=== PATIENT | male | born 1955 | race Two or more races ===

== ENCOUNTER 2020-03-18 15:10 | Inpatient (IN) | payer MEDICAID ==
[~2020-03-18] VITALS: Ht 172.7 cm; Wt 95.2 kg
[2020-03-18] MEDS ORDERED: iohexol 350MG/ML 100ml bottle IV ONE (16:33)
[2020-03-18] MEDS ORDERED: TRAZ-251 PO (17:50)
[2020-03-18] MEDS ORDERED: GABA300C PO (17:50)
[2020-03-18] MEDS ORDERED: NORT50CA PO (17:50)
[2020-03-18] MEDS ORDERED: BACL10TA2 PO (17:50)
[2020-03-18] MEDS ORDERED: DOCU-22 PO (17:50)
[2020-03-18] MEDS ORDERED: BETH25TA43 PO (17:50)
[2020-03-18] MEDS ORDERED: ATOR10TA70 PO (17:50)
[2020-03-18] MEDS ORDERED: FLO0.4C PO (17:50)
[2020-03-18] MEDS ORDERED: morphine 2 MG/ML inj. syringe IV PRN ×2 (17:55)
[2020-03-18] MEDS ORDERED: HYDROcodone/acetaminophen 5mg/325mg tablet PO PRN (17:55)
[2020-03-18] MEDS ORDERED: ondansetron/PF 4mg/2ml inj IV PRN (17:55)
[2020-03-18] MEDS ORDERED: acetaminophen 325mg tablet PO PRN ×2 (17:55)
[2020-03-18] MEDS ORDERED: mag hydrox/Alum hydrox/simeth 30ml oral suspension PO PRN (17:55)
[2020-03-18] MEDS: dextrose 5%-1/2 normal saline 1,000 ML IV SCH (18:10)
[2020-03-18 19:55] LABS: D-DIMER 0.65 MG/L FEU (0-0.50)
[2020-03-18 19:57] LABS: C-REACTIVE PROTEIN 23.4 MG/DL (0.0-0.5)
--- NOTE | 2020-03-18 20:14 | NUR ---
Patient in room ED 16. I have received report from Ara EL and had the opportunity to ask questions.
[2020-03-18 20:25] VITALS: BP 146/83
--- NOTE | 2020-03-18 20:25 | NUR ---
Patient arrived to unit from ED at 2024 via gurney and walked self to bed. Patient oriented to room, call light in reach, A&Ox4, hooked up to telemetry monitoring, and MRSA swab obtained. Patient vitals: BP: 146/83, HR: 77, SpO@: 94% on 6L nasal cannula, RR: 26, T: 98.2, and pain 0. Will continue to monitor.
[2020-03-18] MEDS ORDERED: REMDESIVIR 100MG inj. 200 MG in normal saline 100ml IV soln 100 ML IV ONE (21:40)
[2020-03-18 22:00] VITALS: BP 140/80
[2020-03-18 23:16] LABS: ABG HCO3 23.3 mmol/L (22.0-26.0); ABG OXYGEN SATURATION 82.4 % (94-97); ABG PO2 (T) 42.1 mmHg (75.0-100.0); ALLEN'S TEST POSITIVE; FCOHb 0.4 % (0.0-3.9); FLOW 6 L/min; FMetHb 0.1 % (0.0-1.5); PATIENT TEMPERATURE 36.8; TOTAL HEMOGLOBIN 14.7 G/dl (14.0-18.0)
[2020-03-18] MEDS ORDERED: LIDOcaine 2% 10ml TOPICAL JELLY (Urojet) TP ONE (23:40)
[2020-03-19] VITALS (7 sets, daily range): BP systolic 129–137; BP diastolic 58–82
[2020-03-19] MEDS: dextrose 5%-1/2 normal saline 1,000 ML IV SCH ×2 (05:57→20:54)
[2020-03-19 05:59] LABS: BASOPHILS % (AUTO) 0.2 % (0-1); EOSINOPHILS % (AUTO) 0 % (0-6); HEMATOCRIT 42.9 % (42.0-52.0); HEMOGLOBIN 14.1 g/dl (14.0-17.9); LYMPHOCYTES # (AUTO) 0.6 X10'3 (1.1-4.8); LYMPHOCYTES % (AUTO) 23.2 % (21-51); MEAN CORPUSCULAR HEMOGLOBIN 29.5 PG (27.0-31.0); MEAN CORPUSCULAR HGB CONC 32.9 g/dL (33.0-36.5); MEAN CORPUSCULAR VOLUME 89.7 FL (78-98); MEAN PLATELET VOLUME 9.2 FL (7.4-10.4); MONOCYTES # (AUTO) 0.2 X10'3 (0-0.9); NEUTROPHILS % (AUTO) 69.6 % (42-75); PLATELET COUNT 167 X10'3 (140-440); RED BLOOD COUNT 4.79 X10'6 (4.70-6.10); RED CELL DISTRIBUTION WIDTH 14.3 % (11.5-14.5); WHITE BLOOD COUNT 2.8 X10'3 (4.5-11.0)
[2020-03-19 06:07] LABS: ALBUMIN 2.5 G/DL (3.4-5.0); ANION GAP 10 (8-16); BLOOD UREA NITROGEN 22 MG/DL (7-18); BUN/CREATININE RATIO 21.4 (5.4-32.0); CALCIUM 8.4 MG/DL (8.5-10.1); CHLORIDE 104 MMOL/L (99-107); CREATININE 1.03 MG/DL (0.60-1.10); GLUCOSE 174 MG/DL (70-104); POTASSIUM 3.9 MMOL/L (3.5-5.1); SODIUM 138 MMOL/L (135-145); TOTAL CARBON DIOXIDE 24.5 MMOL/L (24-32); eGFR 73 ML/MIN
--- NOTE | 2020-03-19 06:38 | NUR ---
Problems reprioritized. Patient report given, questions answered & plan of care reviewed with Cassidy EL.
[2020-03-19 07:00] LABS: PLATELET ESTIMATE NORMAL; TOTAL CELLS COUNTED 100
[2020-03-19] MEDS: enoxaparin 40mg/0.4ml syringe SUBCUT SCH (08:00)
[2020-03-19] MEDS: REMDESIVIR 100MG inj. 100 MG in normal saline 100ml IV soln 100 ML IV SCH (08:00)
[2020-03-19] MEDS ORDERED: dexamethasone 4mg tablet PO SCH (08:00)
[2020-03-19] MEDS ORDERED: DEXAMETHASONE 6 MG TABLET PO SCH (08:00)
[2020-03-19 08:06] LABS: C-REACTIVE PROTEIN 23.73 MG/DL (0.0-0.5); LACTATE DEHYDROGENASE 484 U/L (85-227)
[2020-03-19] MEDS: atorvastatin 10mg tablet PO SCH (08:17)
[2020-03-19] MEDS: CefTRIAXone 2gm/D5W 50ml BAG 50 ML IV SCH (10:20)
[2020-03-19] MEDS: gabapentin 300mg capsule PO SCH ×2 (13:00→20:54)
[2020-03-19] MEDS: baclofen 10mg tablet PO SCH ×2 (13:00→20:53)
--- NOTE | 2020-03-19 17:04 | NUR ---
Patient AOx4 but reports still feeling confused, and is able to follow commands. No open wounds. Addendum: 03/19/20 at 1707 by Cassidy Alonzo RN Wrong patient
--- NOTE | 2020-03-19 18:00 | NUR ---
Patient in room PCU 3009. I have received report from Cassidy EL and had the opportunity to ask questions and assume patient care.
--- NOTE | 2020-03-19 18:15 | NUR ---
Problems reprioritized. Patient report given, questions answered & plan of care reviewed with Tricia EL.
[2020-03-19] MEDS: tamsulosin 0.4mg capsule PO SCH (20:53)
[2020-03-19] MEDS: nortriptyline 25mg capsule PO SCH (20:53)
[2020-03-19] MEDS: DEXAMETHASONE 6 MG TABLET PO SCH (20:54)
[2020-03-19] MEDS ORDERED: traZODone 50mg tablet PO SCH (21:00)
--- NOTE | 2020-03-19 22:42 | NUR ---
Attempted to dart patient, very poor historian.
[2020-03-20 02:00] VITALS: BP 121/69
--- NOTE | 2020-03-20 06:00 | NUR ---
Patient in room PCU 3009. I have received report from Leilani EL and had the opportunity to ask questions and assume patient care.
--- NOTE | 2020-03-20 06:24 | NUR ---
Problems reprioritized. Patient report given, questions answered & plan of care reviewed with Georgette EL.
[2020-03-20 06:43] LABS: BASOPHILS % (AUTO) 0.3 % (0-1); EOSINOPHILS % (AUTO) 0 % (0-6); HEMATOCRIT 40.9 % (42.0-52.0); HEMOGLOBIN 13.7 g/dl (14.0-17.9); LYMPHOCYTES # (AUTO) 0.7 X10'3 (1.1-4.8); LYMPHOCYTES % (AUTO) 11.1 % (21-51); MEAN CORPUSCULAR HEMOGLOBIN 29.3 PG (27.0-31.0); MEAN CORPUSCULAR HGB CONC 33.4 g/dL (33.0-36.5); MEAN CORPUSCULAR VOLUME 87.7 FL (78-98); MEAN PLATELET VOLUME 9.3 FL (7.4-10.4); MONOCYTES # (AUTO) 0.2 X10'3 (0-0.9); NEUTROPHILS # (AUTO) 5.1 X10'3 (1.8-7.7); NEUTROPHILS % (AUTO) 84.6 % (42-75); PLATELET COUNT 214 X10'3 (140-440); RED BLOOD COUNT 4.66 X10'6 (4.70-6.10); RED CELL DISTRIBUTION WIDTH 14.2 % (11.5-14.5); WHITE BLOOD COUNT 6.1 X10'3 (4.5-11.0)
[2020-03-20 06:53] LABS: D-DIMER 0.95 MG/L FEU (0-0.50)
[2020-03-20 07:17] LABS: ALBUMIN 2.5 G/DL (3.4-5.0); ANION GAP 12 (8-16); BLOOD UREA NITROGEN 29 MG/DL (7-18); BUN/CREATININE RATIO 24.6 (5.4-32.0); C-REACTIVE PROTEIN 10.13 MG/DL (0.0-0.5); CALCIUM 8.6 MG/DL (8.5-10.1); CHLORIDE 109 MMOL/L (99-107); CREATININE 1.18 MG/DL (0.60-1.10); GLUCOSE 180 MG/DL (70-104); SODIUM 145 MMOL/L (135-145); TOTAL CARBON DIOXIDE 23.6 MMOL/L (24-32); eGFR 62 ML/MIN
[2020-03-20] MEDS: enoxaparin 40mg/0.4ml syringe SUBCUT SCH ×2 (08:54→20:12)
[2020-03-20] MEDS: DEXAMETHASONE 6 MG TABLET PO SCH ×2 (08:54→20:10)
[2020-03-20] MEDS: atorvastatin 10mg tablet PO SCH (08:54)
[2020-03-20] MEDS: baclofen 10mg tablet PO SCH ×2 (08:54→16:03)
[2020-03-20] MEDS: gabapentin 300mg capsule PO SCH ×3 (08:54→20:10)
[2020-03-20] MEDS: REMDESIVIR 100MG inj. 100 MG in normal saline 100ml IV soln 100 ML IV SCH (08:55)
[2020-03-20] MEDS: CefTRIAXone 2gm/D5W 50ml BAG 50 ML IV SCH (08:55)
[2020-03-20 10:00] VITALS: BP 131/69
[2020-03-20 13:03] VITALS: BP 123/72
[2020-03-20] MEDS: dextrose 5%-1/2 normal saline 1,000 ML IV SCH (13:45)
[2020-03-20 17:13] VITALS: BP 134/72
--- NOTE | 2020-03-20 18:20 | NUR ---
Problems reprioritized. Patient report given, questions answered & plan of care reviewed with Mirza EL.
[2020-03-20 19:00] VITALS: BP 146/75
[2020-03-20] MEDS: nortriptyline 25mg capsule PO SCH (20:10)
[2020-03-20] MEDS: tamsulosin 0.4mg capsule PO SCH (20:10)
[2020-03-20 23:00] VITALS: BP 143/84
[2020-03-21 03:00] VITALS: BP 121/78
--- NOTE | 2020-03-21 06:11 | NUR ---
Patient in room PCU 3009. I have received report from Mirza EL and had the opportunity to ask questions and assume patient care.
[2020-03-21] MEDS: dextrose 5%-1/2 normal saline 1,000 ML IV SCH (06:25)
[2020-03-21 07:00] VITALS: BP 141/72
[2020-03-21] MEDS: atorvastatin 10mg tablet PO SCH (08:07)
[2020-03-21] MEDS: gabapentin 300mg capsule PO SCH ×3 (08:07→20:55)
[2020-03-21] MEDS: REMDESIVIR 100MG inj. 100 MG in normal saline 100ml IV soln 100 ML IV SCH (08:07)
[2020-03-21] MEDS: DEXAMETHASONE 6 MG TABLET PO SCH ×2 (08:07→20:54)
[2020-03-21] MEDS: enoxaparin 40mg/0.4ml syringe SUBCUT SCH (08:08)
[2020-03-21 08:42] LABS: BASOPHILS % (AUTO) 0.2 % (0-1); EOSINOPHILS % (AUTO) 0 % (0-6); HEMATOCRIT 40.3 % (42.0-52.0); HEMOGLOBIN 13.5 g/dl (14.0-17.9); LYMPHOCYTES # (AUTO) 0.5 X10'3 (1.1-4.8); LYMPHOCYTES % (AUTO) 8.1 % (21-51); MEAN CORPUSCULAR HEMOGLOBIN 29.7 PG (27.0-31.0); MEAN CORPUSCULAR HGB CONC 33.4 g/dL (33.0-36.5); MEAN PLATELET VOLUME 9.2 FL (7.4-10.4); MONOCYTES # (AUTO) 0.2 X10'3 (0-0.9); NEUTROPHILS # (AUTO) 5.3 X10'3 (1.8-7.7); NEUTROPHILS % (AUTO) 87.7 % (42-75); PLATELET COUNT 236 X10'3 (140-440); RED BLOOD COUNT 4.53 X10'6 (4.70-6.10); RED CELL DISTRIBUTION WIDTH 14.3 % (11.5-14.5)
[2020-03-21 08:51] LABS: D-DIMER 1.13 MG/L FEU (0-0.50)
[2020-03-21] MEDS: CefTRIAXone 2gm/D5W 50ml BAG 50 ML IV SCH (09:00)
[2020-03-21 09:02] LABS: ALBUMIN 2.5 G/DL (3.4-5.0); ANION GAP 11 (8-16); BLOOD UREA NITROGEN 30 MG/DL (7-18); BUN/CREATININE RATIO 26.5 (5.4-32.0); C-REACTIVE PROTEIN 4.53 MG/DL (0.0-0.5); CALCIUM 8.2 MG/DL (8.5-10.1); CHLORIDE 107 MMOL/L (99-107); CREATININE 1.13 MG/DL (0.60-1.10); GLUCOSE 150 MG/DL (70-104); POTASSIUM 4.2 MMOL/L (3.5-5.1); SODIUM 141 MMOL/L (135-145); TOTAL CARBON DIOXIDE 23.5 MMOL/L (24-32); eGFR 65 ML/MIN
[2020-03-21 11:00] VITALS: BP 155/84
[2020-03-21 16:27] VITALS: BP 117/79
[2020-03-21 18:00] VITALS: BP 150/79
--- NOTE | 2020-03-21 18:30 | NUR ---
Patient in room PCU 3009. I have received report from Robert EL and had the opportunity to ask questions and assume patient care.
[2020-03-21] MEDS: lactobacillus rhamnosus 10,000 MMU CELLS/CAPSULE PO SCH (20:54)
[2020-03-21] MEDS: nortriptyline 25mg capsule PO SCH (20:54)
[2020-03-21] MEDS: tamsulosin 0.4mg capsule PO SCH (20:55)
[2020-03-21] MEDS: HYDROcodone/acetaminophen 10/325mg tab PO PRN (20:56)
[2020-03-21] MEDS: enoxaparin 60mg/0.6ml syringe SUBCUT SCH (20:57)
[2020-03-21 22:00] VITALS: BP 140/91
[2020-03-22 02:00] VITALS: BP 128/74
[2020-03-22] MEDS: HYDROcodone/acetaminophen 10/325mg tab PO PRN ×2 (02:42→19:45)
[2020-03-22] MEDS: dextrose 5%-1/2 normal saline 1,000 ML IV SCH ×3 (03:00→22:31)
[2020-03-22 05:43] LABS: BASOPHILS % (AUTO) 0.6 % (0-1); EOSINOPHILS % (AUTO) 0 % (0-6); HEMATOCRIT 40.1 % (42.0-52.0); HEMOGLOBIN 13.2 g/dl (14.0-17.9); LYMPHOCYTES # (AUTO) 0.4 X10'3 (1.1-4.8); LYMPHOCYTES % (AUTO) 6.3 % (21-51); MEAN CORPUSCULAR HEMOGLOBIN 29.1 PG (27.0-31.0); MEAN CORPUSCULAR HGB CONC 32.9 g/dL (33.0-36.5); MEAN CORPUSCULAR VOLUME 88.3 FL (78-98); MEAN PLATELET VOLUME 9.4 FL (7.4-10.4); MONOCYTES # (AUTO) 0.2 X10'3 (0-0.9); MONOCYTES % (AUTO) 3.3 % (2-12); NEUTROPHILS % (AUTO) 89.8 % (42-75); PLATELET COUNT 254 X10'3 (140-440); RED BLOOD COUNT 4.54 X10'6 (4.70-6.10); RED CELL DISTRIBUTION WIDTH 14.3 % (11.5-14.5); WHITE BLOOD COUNT 6.7 X10'3 (4.5-11.0)
[2020-03-22 06:00] VITALS: BP 124/68
[2020-03-22 06:28] LABS: ALBUMIN 2.5 G/DL (3.4-5.0); ANION GAP 8 (8-16); BLOOD UREA NITROGEN 25 MG/DL (7-18); BUN/CREATININE RATIO 22.3 (5.4-32.0); C-REACTIVE PROTEIN 2.89 MG/DL (0.0-0.5); CALCIUM 8.6 MG/DL (8.5-10.1); CHLORIDE 106 MMOL/L (99-107); CREATININE 1.12 MG/DL (0.60-1.10); GLUCOSE 171 MG/DL (70-104); POTASSIUM 4.7 MMOL/L (3.5-5.1); SODIUM 139 MMOL/L (135-145); TOTAL CARBON DIOXIDE 24.6 MMOL/L (24-32); eGFR 66 ML/MIN
--- NOTE | 2020-03-22 06:56 | NUR ---
Problems reprioritized. Patient report given, questions answered & plan of care reviewed with Mariya EL.
[2020-03-22 07:22] LABS: D-DIMER 1.08 MG/L FEU (0-0.50)
[2020-03-22] MEDS: CefTRIAXone 2gm/D5W 50ml BAG 50 ML IV SCH (08:00)
[2020-03-22] MEDS: REMDESIVIR 100MG inj. 100 MG in normal saline 100ml IV soln 100 ML IV SCH (08:00)
[2020-03-22] MEDS: DEXAMETHASONE 6 MG TABLET PO SCH ×2 (09:17→19:44)
[2020-03-22] MEDS: gabapentin 300mg capsule PO SCH ×3 (09:18→22:30)
[2020-03-22] MEDS: atorvastatin 10mg tablet PO SCH (09:18)
[2020-03-22] MEDS: lactobacillus rhamnosus 10,000 MMU CELLS/CAPSULE PO SCH ×2 (09:18→19:44)
[2020-03-22] MEDS: enoxaparin 60mg/0.6ml syringe SUBCUT SCH ×2 (09:19→19:45)
[2020-03-22 11:00] VITALS: BP 131/74
[2020-03-22 15:00] VITALS: BP 128/66
[2020-03-22 18:00] VITALS: BP 128/79
--- NOTE | 2020-03-22 18:46 | NUR ---
Patient in room PCU 3009. I have received report from Mariya EL and had the opportunity to ask questions and assume patient care.
--- NOTE | 2020-03-22 18:55 | NUR ---
Problems reprioritized. Patient report given, questions answered & plan of care reviewed with Lucita EL.
[2020-03-22 22:00] VITALS: BP 130/77
[2020-03-22] MEDS: tamsulosin 0.4mg capsule PO SCH (22:30)
[2020-03-22] MEDS: nortriptyline 25mg capsule PO SCH (22:30)
[2020-03-23] MEDS: HYDROcodone/acetaminophen 10/325mg tab PO PRN (01:05)
[2020-03-23 02:00] VITALS: BP 138/76
[2020-03-23 05:52] LABS: BASOPHILS % (AUTO) 0.2 % (0-1); EOSINOPHILS % (AUTO) 0 % (0-6); HEMATOCRIT 40.2 % (42.0-52.0); HEMOGLOBIN 13.5 g/dl (14.0-17.9); LYMPHOCYTES # (AUTO) 0.5 X10'3 (1.1-4.8); MEAN CORPUSCULAR HEMOGLOBIN 29.8 PG (27.0-31.0); MEAN CORPUSCULAR HGB CONC 33.5 g/dL (33.0-36.5); MEAN CORPUSCULAR VOLUME 88.8 FL (78-98); MEAN PLATELET VOLUME 9.1 FL (7.4-10.4); MONOCYTES # (AUTO) 0.2 X10'3 (0-0.9); MONOCYTES % (AUTO) 3.2 % (2-12); NEUTROPHILS # (AUTO) 5.8 X10'3 (1.8-7.7); NEUTROPHILS % (AUTO) 88.6 % (42-75); PLATELET COUNT 257 X10'3 (140-440); RED BLOOD COUNT 4.52 X10'6 (4.70-6.10); RED CELL DISTRIBUTION WIDTH 14.4 % (11.5-14.5); WHITE BLOOD COUNT 6.5 X10'3 (4.5-11.0)
[2020-03-23 06:04] LABS: ALBUMIN 2.5 G/DL (3.4-5.0); ANION GAP 10 (8-16); BLOOD UREA NITROGEN 29 MG/DL (7-18); BUN/CREATININE RATIO 25.2 (5.4-32.0); CALCIUM 8.2 MG/DL (8.5-10.1); CHLORIDE 104 MMOL/L (99-107); CREATININE 1.15 MG/DL (0.60-1.10); GLUCOSE 183 MG/DL (70-104); POTASSIUM 4.7 MMOL/L (3.5-5.1); SODIUM 137 MMOL/L (135-145); TOTAL CARBON DIOXIDE 23.4 MMOL/L (24-32); eGFR 64 ML/MIN
[2020-03-23 06:08] LABS: D-DIMER 1.08 MG/L FEU (0-0.50)
--- NOTE | 2020-03-23 06:18 | NUR ---
Problems reprioritized. Patient report given, questions answered & plan of care reviewed with Najma EL.
--- NOTE | 2020-03-23 06:30 | NUR ---
Patient in room PCU 3009. I have received report from SIENNA Landrum and had the opportunity to ask questions and assume patient care.
[2020-03-23 08:00] VITALS: BP 132/76
[2020-03-23] MEDS: CefTRIAXone 2gm/D5W 50ml BAG 50 ML IV SCH (08:51)
[2020-03-23] MEDS: atorvastatin 10mg tablet PO SCH (08:52)
[2020-03-23] MEDS: DEXAMETHASONE 6 MG TABLET PO SCH ×2 (08:52→20:00)
[2020-03-23] MEDS: lactobacillus rhamnosus 10,000 MMU CELLS/CAPSULE PO SCH ×2 (08:52→20:00)
[2020-03-23] MEDS: enoxaparin 60mg/0.6ml syringe SUBCUT SCH ×2 (08:53→20:00)
[2020-03-23] MEDS: gabapentin 300mg capsule PO SCH ×3 (08:53→21:03)
[2020-03-23 10:37] VITALS: BP 125/76
--- NOTE | 2020-03-23 14:56 | NUR ---
Initial: Pt admit DX acute respiratory failure r/t COVID-19 per EMR. PO fluctuating 50-75% meals improving to 75-100% more recent meals meeting needs. No SOB at this time per MD note. LBM 03/21. Will continue to monitor for additional protein needs. Rec: 1. continue regular diet 2. monitor for additional protein needs 3. routine bowel care 4. wt per rx Addendum: 03/23/20 at [address] Amended: Links added.
[2020-03-23 17:00] VITALS: BP 119/65
[2020-03-23] MEDS: dextrose 5%-1/2 normal saline 1,000 ML IV SCH (17:28)
--- NOTE | 2020-03-23 18:00 | NUR ---
Patient in room PCU 3009. I have received report from Najma EL and had the opportunity to ask questions and assume patient care.
--- NOTE | 2020-03-23 18:30 | NUR ---
Problems reprioritized. Patient report given, questions answered & plan of care reviewed with Michael RN.
[2020-03-23] MEDS: tamsulosin 0.4mg capsule PO SCH (21:03)
[2020-03-23] MEDS: nortriptyline 25mg capsule PO SCH (21:03)
[2020-03-23 22:00] VITALS: BP 141/76
[2020-03-24] MEDS: dextrose 5%-1/2 normal saline 1,000 ML IV SCH ×2 (01:05→10:26)
[2020-03-24 02:00] VITALS: BP 125/86
[2020-03-24 05:32] VITALS: BP 133/75
--- NOTE | 2020-03-24 06:26 | NUR ---
Patient in room PCU 3009. I have received report from Angelina EL and had the opportunity to ask questions and assume patient care.
--- NOTE | 2020-03-24 06:30 | NUR ---
Orientee documentation: I have reviewed and agree with all interventions, assessments performed, and Medication administration documented by Anali RN.
[2020-03-24 07:00] VITALS: BP 122/74
[2020-03-24 07:02] LABS: D-DIMER 0.93 MG/L FEU (0-0.50)
[2020-03-24] MEDS: CefTRIAXone 2gm/D5W 50ml BAG 50 ML IV SCH (08:03)
[2020-03-24] MEDS: gabapentin 300mg capsule PO SCH ×3 (08:03→20:49)
[2020-03-24] MEDS: lactobacillus rhamnosus 10,000 MMU CELLS/CAPSULE PO SCH ×2 (08:03→20:50)
[2020-03-24] MEDS: DEXAMETHASONE 6 MG TABLET PO SCH ×2 (08:04→20:48)
[2020-03-24] MEDS: atorvastatin 10mg tablet PO SCH (08:04)
[2020-03-24] MEDS: enoxaparin 60mg/0.6ml syringe SUBCUT SCH ×2 (08:05→20:51)
[2020-03-24 11:00] VITALS: BP 127/63
--- NOTE | 2020-03-24 13:00 | NUR ---
Patient oxygen high flow titrated down. 35 liters @ 80%. Patient respirations 18 with no increased work of breathing. Will continue to monitor.
[2020-03-24 15:00] VITALS: BP 120/69
--- NOTE | 2020-03-24 17:56 | NUR ---
Titrated patient's high flow 30 L @ 70%. Oxygen saturation 94%. Respiration rate 18. No increased work of breathing.
--- NOTE | 2020-03-24 18:00 | NUR ---
Patient in room PCU 3009. I have received report from Nori EL and had the opportunity to ask questions and assume patient care.
--- NOTE | 2020-03-24 18:14 | NUR ---
Problems reprioritized. Patient report given, questions answered & plan of care reviewed with SIENNA Alfaro. Patient stable at transfer of care.
--- NOTE | 2020-03-24 18:20 | NUR ---
Patient in room PCU 3009. I have received report from Nori EL and had the opportunity to ask questions and assume patient care.
[2020-03-24] MEDS: nortriptyline 25mg capsule PO SCH (20:49)
[2020-03-24] MEDS: tamsulosin 0.4mg capsule PO SCH (20:50)
[2020-03-24 21:00] VITALS: BP 119/76
[2020-03-25] VITALS (7 sets, daily range): BP systolic 107–121; BP diastolic 68–82
[2020-03-25 04:54] LABS: D-DIMER 0.67 MG/L FEU (0-0.50)
--- NOTE | 2020-03-25 06:14 | NUR ---
Problems reprioritized. Patient report given, questions answered & plan of care reviewed with Nori EL.
--- NOTE | 2020-03-25 06:15 | NUR ---
Patient in room PCU 3009. I have received report from Angelina EL and had the opportunity to ask questions and assume patient care.
--- NOTE | 2020-03-25 06:34 | NUR ---
Orientee documentation: I have reviewed and agree with all interventions, assessments performed, and Medication administration documented by Polly EL.
--- NOTE | 2020-03-25 06:35 | NUR ---
Problems reprioritized. Patient report given, questions answered & plan of care reviewed with Nori EL.
[2020-03-25] MEDS: DEXAMETHASONE 6 MG TABLET PO SCH ×2 (07:52→20:51)
[2020-03-25] MEDS: lactobacillus rhamnosus 10,000 MMU CELLS/CAPSULE PO SCH ×2 (07:53→20:51)
[2020-03-25] MEDS: gabapentin 300mg capsule PO SCH ×3 (07:53→20:51)
[2020-03-25] MEDS: atorvastatin 10mg tablet PO SCH (07:53)
[2020-03-25] MEDS: CefTRIAXone 2gm/D5W 50ml BAG 50 ML IV SCH (07:53)
[2020-03-25] MEDS: enoxaparin 60mg/0.6ml syringe SUBCUT SCH ×2 (07:54→20:52)
--- NOTE | 2020-03-25 11:00 | NUR ---
Patient oxygen requirements 30L at 60% on high flow. Oxygen saturation 92%. No increased work of breathing. Will continue to monitor.
--- NOTE | 2020-03-25 18:34 | NUR ---
Patient in room PCU 3009. I have received report from Nori EL and had the opportunity to ask questions and assume patient care.
[2020-03-25] MEDS: tamsulosin 0.4mg capsule PO SCH (20:51)
[2020-03-25] MEDS: nortriptyline 25mg capsule PO SCH (20:51)
[2020-03-26 02:00] VITALS: BP 112/68
--- NOTE | 2020-03-26 06:05 | NUR ---
Problems reprioritized. Patient report given, questions answered & plan of care reviewed with Gifty.
--- NOTE | 2020-03-26 06:33 | NUR ---
Patient in room PCU 3009. I have received report from Debbie EL and had the opportunity to ask questions and assume patient care.
[2020-03-26 06:40] LABS: D-DIMER 0.78 MG/L FEU (0-0.50)
[2020-03-26 07:00] VITALS: BP 112/68
--- NOTE | 2020-03-26 07:00 | NUR ---
Orientee documentation: I have reviewed and agree with all interventions, assessments performed, and Medications administered documented by Karime EL.
--- NOTE | 2020-03-26 07:00 | NUR ---
Problems reprioritized. Patient report given, questions answered & plan of care reviewed with Sivan EL.
[2020-03-26] MEDS: DEXAMETHASONE 6 MG TABLET PO SCH ×2 (08:53→21:06)
[2020-03-26] MEDS: CefTRIAXone 2gm/D5W 50ml BAG 50 ML IV SCH (08:54)
[2020-03-26] MEDS: lactobacillus rhamnosus 10,000 MMU CELLS/CAPSULE PO SCH ×2 (08:54→21:06)
[2020-03-26] MEDS: enoxaparin 60mg/0.6ml syringe SUBCUT SCH ×2 (08:54→21:07)
[2020-03-26] MEDS: atorvastatin 10mg tablet PO SCH (08:54)
[2020-03-26] MEDS: gabapentin 300mg capsule PO SCH ×3 (08:54→21:08)
[2020-03-26 12:00] VITALS: BP 117/92
[2020-03-26 14:39] VITALS: BP 123/67
--- NOTE | 2020-03-26 15:48 | NUR ---
Reassessment: Pt PO intake average 100% on heart healthy diet, d/w dietary to send double protein TIDWM for satiety and increased protein needs. Last BM 03/21, prn bowel care available. Recommend prune juice with next meal, d/w dietary. Will continue to monitor for additional protein needs. Rec: 1. continue regular diet 2. double eggs at breakfast, double meat BIDLD 3. routine bowel care 4. wt per rx Addendum: 03/26/20 at [address] Amended: Links added. Addendum: 03/26/20 at [address] I have reviewed and agree with note by Chocolate Dipper. Kandice Carey RD
[2020-03-26 18:00] VITALS: BP 124/73
--- NOTE | 2020-03-26 18:22 | NUR ---
Problems reprioritized. Patient report given, questions answered & plan of care reviewed with Jennifer EL.
--- NOTE | 2020-03-26 18:38 | NUR ---
Patient in room PCU 3009. I have received report from Sivan EL and had the opportunity to ask questions and assume patient care.
[2020-03-26] MEDS: tamsulosin 0.4mg capsule PO SCH (21:07)
[2020-03-26] MEDS: nortriptyline 25mg capsule PO SCH (21:08)
[2020-03-26 22:00] VITALS: BP 114/76
[2020-03-27 02:00] VITALS: BP 108/71
--- NOTE | 2020-03-27 06:38 | NUR ---
Patient in room PCU 3009. I have received report from Jennifer EL and had the opportunity to ask questions and assume patient care.
--- NOTE | 2020-03-27 06:38 | NUR ---
Problems reprioritized. Patient report given, questions answered & plan of care reviewed with Josefina EL.
[2020-03-27 07:22] VITALS: BP 123/72
[2020-03-27] MEDS: lactobacillus rhamnosus 10,000 MMU CELLS/CAPSULE PO SCH ×2 (07:38→20:56)
[2020-03-27] MEDS: DEXAMETHASONE 6 MG TABLET PO SCH (07:38)
[2020-03-27] MEDS: atorvastatin 10mg tablet PO SCH (07:38)
[2020-03-27] MEDS: docusate sod 100mg capsule PO PRN (07:38)
[2020-03-27] MEDS: enoxaparin 60mg/0.6ml syringe SUBCUT SCH ×2 (07:39→20:57)
[2020-03-27] MEDS: gabapentin 300mg capsule PO SCH ×3 (07:39→20:56)
[2020-03-27] MEDS: magnesium hydroxide 30ml (MOM) UD suspension PO PRN (07:39)
[2020-03-27 07:50] LABS: D-DIMER 0.68 MG/L FEU (0-0.50)
[2020-03-27 11:39] VITALS: BP 119/71
[2020-03-27 16:24] VITALS: BP 137/75
--- NOTE | 2020-03-27 18:18 | NUR ---
Problems reprioritized. Patient report given, questions answered & plan of care reviewed with Emma EL.
[2020-03-27 19:00] VITALS: BP 140/70
[2020-03-27] MEDS: tamsulosin 0.4mg capsule PO SCH (20:56)
[2020-03-27] MEDS: dexamethasone 4mg tablet PO SCH (20:56)
[2020-03-27] MEDS: nortriptyline 25mg capsule PO SCH (20:56)
[2020-03-28 02:58] VITALS: BP 114/68
[2020-03-28 05:28] LABS: D-DIMER 0.36 MG/L FEU (0-0.50)
--- NOTE | 2020-03-28 06:13 | NUR ---
Patient in room PCU 3009. I have received report from SIENNA Carter and had the opportunity to ask questions and assume patient care.
[2020-03-28 07:37] VITALS: BP 125/75
[2020-03-28] MEDS: atorvastatin 10mg tablet PO SCH (07:40)
[2020-03-28] MEDS: lactobacillus rhamnosus 10,000 MMU CELLS/CAPSULE PO SCH ×2 (07:40→22:28)
[2020-03-28] MEDS: dexamethasone 4mg tablet PO SCH ×2 (07:40→22:28)
[2020-03-28] MEDS: gabapentin 300mg capsule PO SCH ×3 (07:40→22:30)
[2020-03-28] MEDS: enoxaparin 40mg/0.4ml syringe SUBCUT SCH ×2 (07:51→22:54)
[2020-03-28 11:01] VITALS: BP 144/66
[2020-03-28 15:00] VITALS: BP 118/74
[2020-03-28 18:00] VITALS: BP 117/74
--- NOTE | 2020-03-28 18:42 | NUR ---
Problems reprioritized. Patient report given, questions answered & plan of care reviewed with SIENNA Osborn.
--- NOTE | 2020-03-28 18:43 | NUR ---
Patient in room PCU 3009. I have received report from Douglas EL and had the opportunity to ask questions and assume patient care.
[2020-03-28 22:00] VITALS: BP 133/78
[2020-03-28] MEDS: tamsulosin 0.4mg capsule PO SCH (22:29)
[2020-03-28] MEDS: nortriptyline 25mg capsule PO SCH (22:29)
[2020-03-29 02:00] VITALS: BP 120/83
[2020-03-29] MEDS: magnesium hydroxide 30ml (MOM) UD suspension PO PRN (02:33)
[2020-03-29] MEDS: docusate sod 100mg capsule PO PRN ×2 (02:33→21:23)
[2020-03-29 05:34] LABS: BASOPHILS % (AUTO) 0.3 % (0-1); EOSINOPHILS % (AUTO) 0.1 % (0-6); HEMATOCRIT 45.1 % (42.0-52.0); HEMOGLOBIN 14.7 g/dl (14.0-17.9); LYMPHOCYTES # (AUTO) 0.5 X10'3 (1.1-4.8); LYMPHOCYTES % (AUTO) 6.9 % (21-51); MEAN CORPUSCULAR HEMOGLOBIN 29.3 PG (27.0-31.0); MEAN CORPUSCULAR HGB CONC 32.7 g/dL (33.0-36.5); MEAN CORPUSCULAR VOLUME 89.7 FL (78-98); MONOCYTES # (AUTO) 0.5 X10'3 (0-0.9); NEUTROPHILS # (AUTO) 6.8 X10'3 (1.8-7.7); NEUTROPHILS % (AUTO) 85.7 % (42-75); PLATELET COUNT 209 X10'3 (140-440); RED BLOOD COUNT 5.03 X10'6 (4.70-6.10); WHITE BLOOD COUNT 7.9 X10'3 (4.5-11.0)
[2020-03-29 05:40] LABS: D-DIMER 0.42 MG/L FEU (0-0.50)
[2020-03-29 05:51] LABS: ALANINE AMINOTRANSFERASE 37 U/L (12-78); ALBUMIN 2.7 G/DL (3.4-5.0); ALBUMIN/GLOBULIN RATIO 0.7 (1.1-1.5); ALKALINE PHOSPHATASE 79 IU/L (46-116); ANION GAP 8 (8-16); ASPARTATE AMINO TRANSFERASE 11 U/L (10-37); BILIRUBIN,TOTAL 1.2 MG/DL (0.1-1.0); BLOOD UREA NITROGEN 31 MG/DL (7-18); BUN/CREATININE RATIO 25.6 (5.4-32.0); CALCIUM 8.7 MG/DL (8.5-10.1); CHLORIDE 102 MMOL/L (99-107); CREATININE 1.21 MG/DL (0.60-1.10); GLUCOSE 163 MG/DL (70-104); SODIUM 136 MMOL/L (135-145); TOTAL CARBON DIOXIDE 25.6 MMOL/L (24-32); TOTAL PROTEIN 6.7 G/DL (6.4-8.2); eGFR 60 ML/MIN
[2020-03-29 06:00] VITALS: BP 113/69
--- NOTE | 2020-03-29 06:27 | NUR ---
Problems reprioritized. Patient report given, questions answered & plan of care reviewed with Douglas EL.
--- NOTE | 2020-03-29 06:29 | NUR ---
Patient in room PCU 3009. I have received report from SIENNA Osborn and had the opportunity to ask questions and assume patient care.
[2020-03-29] MEDS: gabapentin 300mg capsule PO SCH ×3 (07:57→21:22)
[2020-03-29] MEDS: dexamethasone 4mg tablet PO SCH ×2 (07:57→21:23)
[2020-03-29] MEDS: atorvastatin 10mg tablet PO SCH (07:57)
[2020-03-29] MEDS: lactobacillus rhamnosus 10,000 MMU CELLS/CAPSULE PO SCH ×2 (07:57→21:23)
[2020-03-29] MEDS: enoxaparin 40mg/0.4ml syringe SUBCUT SCH ×2 (07:57→21:23)
[2020-03-29 11:00] VITALS: BP 125/66
--- NOTE | 2020-03-29 12:48 | NUR ---
PAGER ID: [phone] MESSAGE: [id number] Moose Gavin: Can he get a suppository: the Milk of Mag is ineffective so far and hasn't had a BM in days. SIENNA Cole Ext [phone]
[2020-03-29 15:00] VITALS: BP 121/71
[2020-03-29] MEDS ORDERED: bisacodyl 10mg suppository rectal RC STA (15:05)
[2020-03-29 17:54] VITALS: BP 141/67
--- NOTE | 2020-03-29 18:01 | NUR ---
Problems reprioritized. Patient report given, questions answered & plan of care reviewed with SIENNA Osborn.
--- NOTE | 2020-03-29 18:20 | NUR ---
Patient in room PCU 3009. I have received report from Douglas EL and had the opportunity to ask questions and assume patient care.
[2020-03-29] MEDS: tamsulosin 0.4mg capsule PO SCH (21:22)
[2020-03-29] MEDS: nortriptyline 25mg capsule PO SCH (21:22)
[2020-03-29 22:00] VITALS: BP 134/89
[2020-03-30 02:00] VITALS: BP_SYST 121; BP_SYST 134; BP_DIAS 79; BP_DIAS 89
[2020-03-30 05:51] LABS: D-DIMER 0.35 MG/L FEU (0-0.50)
[2020-03-30 06:00] VITALS: BP_SYST 115; BP_SYST 124; BP_DIAS 80; BP_DIAS 84
[2020-03-30 06:06] LABS: ALANINE AMINOTRANSFERASE 34 U/L (12-78); ALBUMIN 2.6 G/DL (3.4-5.0); ALBUMIN/GLOBULIN RATIO 0.7 (1.1-1.5); ALKALINE PHOSPHATASE 78 IU/L (46-116); ANION GAP 7 (8-16); ASPARTATE AMINO TRANSFERASE 14 U/L (10-37); BILIRUBIN,TOTAL 1.1 MG/DL (0.1-1.0); BLOOD UREA NITROGEN 30 MG/DL (7-18); BUN/CREATININE RATIO 27.3 (5.4-32.0); CALCIUM 8.5 MG/DL (8.5-10.1); CHLORIDE 103 MMOL/L (99-107); GLUCOSE 164 MG/DL (70-104); SODIUM 137 MMOL/L (135-145); TOTAL CARBON DIOXIDE 27.2 MMOL/L (24-32); TOTAL PROTEIN 6.5 G/DL (6.4-8.2); eGFR 67 ML/MIN
[2020-03-30 06:08] LABS: BASOPHILS % (AUTO) 0.4 % (0-1); EOSINOPHILS % (AUTO) 0.1 % (0-6); HEMATOCRIT 44.3 % (42.0-52.0); HEMOGLOBIN 14.9 g/dl (14.0-17.9); LYMPHOCYTES # (AUTO) 0.4 X10'3 (1.1-4.8); LYMPHOCYTES % (AUTO) 4.3 % (21-51); MEAN CORPUSCULAR HEMOGLOBIN 30.3 PG (27.0-31.0); MEAN CORPUSCULAR HGB CONC 33.7 g/dL (33.0-36.5); MEAN PLATELET VOLUME 9.1 FL (7.4-10.4); MONOCYTES # (AUTO) 0.6 X10'3 (0-0.9); MONOCYTES % (AUTO) 6.5 % (2-12); NEUTROPHILS # (AUTO) 8.6 X10'3 (1.8-7.7); NEUTROPHILS % (AUTO) 88.7 % (42-75); PLATELET COUNT 195 X10'3 (140-440); RED BLOOD COUNT 4.92 X10'6 (4.70-6.10); WHITE BLOOD COUNT 9.7 X10'3 (4.5-11.0)
[2020-03-30 06:14] LABS: C-REACTIVE PROTEIN < 0.05 MG/DL (0.0-0.5)
--- NOTE | 2020-03-30 06:24 | NUR ---
Patient in room PCU 3009. I have received report from keli kate and had the opportunity to ask questions and assume patient care.
--- NOTE | 2020-03-30 07:00 | NUR ---
Problems reprioritized. Patient report given, questions answered & plan of care reviewed with Ambrosio RN.
[2020-03-30] MEDS: lactobacillus rhamnosus 10,000 MMU CELLS/CAPSULE PO SCH ×2 (08:43→21:57)
[2020-03-30] MEDS: dexamethasone 4mg tablet PO SCH ×2 (08:43→11:45)
[2020-03-30] MEDS: atorvastatin 10mg tablet PO SCH (08:44)
[2020-03-30] MEDS: gabapentin 300mg capsule PO SCH ×3 (08:44→21:57)
[2020-03-30] MEDS: enoxaparin 40mg/0.4ml syringe SUBCUT SCH ×2 (08:46→21:58)
[2020-03-30 15:00] VITALS: BP 108/64
[2020-03-30 18:00] VITALS: BP 116/66
--- NOTE | 2020-03-30 18:24 | NUR ---
Problems reprioritized. Patient report given, questions answered & plan of care reviewed with SIENNA CARDENAS.
--- NOTE | 2020-03-30 18:25 | NUR ---
Patient in room PCU 3009. I have received report from Ambrosio EL and had the opportunity to ask questions and assume patient care.
[2020-03-30] MEDS: tamsulosin 0.4mg capsule PO SCH (21:57)
[2020-03-30] MEDS: nortriptyline 25mg capsule PO SCH (21:58)
[2020-03-30 22:00] VITALS: BP 102/59
[2020-03-31 02:00] VITALS: BP 106/74
[2020-03-31 06:00] VITALS: BP 96/54
--- NOTE | 2020-03-31 06:24 | NUR ---
Problems reprioritized. Patient report given, questions answered & plan of care reviewed with Ambrosio RN.
--- NOTE | 2020-03-31 06:25 | NUR ---
Patient in room PCU 3009. I have received report from keli hernandes and had the opportunity to ask questions and assume patient care.
[2020-03-31 06:38] LABS: BASOPHILS % (AUTO) 0.2 % (0-1); EOSINOPHILS % (AUTO) 0.5 % (0-6); HEMATOCRIT 43.2 % (42.0-52.0); HEMOGLOBIN 14.6 g/dl (14.0-17.9); LYMPHOCYTES # (AUTO) 1.1 X10'3 (1.1-4.8); LYMPHOCYTES % (AUTO) 11.6 % (21-51); MEAN CORPUSCULAR HEMOGLOBIN 30.2 PG (27.0-31.0); MEAN CORPUSCULAR HGB CONC 33.7 g/dL (33.0-36.5); MEAN CORPUSCULAR VOLUME 89.6 FL (78-98); MEAN PLATELET VOLUME 8.6 FL (7.4-10.4); MONOCYTES # (AUTO) 0.7 X10'3 (0-0.9); MONOCYTES % (AUTO) 8.2 % (2-12); NEUTROPHILS # (AUTO) 7.2 X10'3 (1.8-7.7); NEUTROPHILS % (AUTO) 79.5 % (42-75); PLATELET COUNT 175 X10'3 (140-440); RED BLOOD COUNT 4.83 X10'6 (4.70-6.10); RED CELL DISTRIBUTION WIDTH 14.8 % (11.5-14.5); WHITE BLOOD COUNT 9.1 X10'3 (4.5-11.0)
[2020-03-31 06:49] LABS: D-DIMER 0.34 MG/L FEU (0-0.50)
[2020-03-31 06:53] LABS: ALANINE AMINOTRANSFERASE 32 U/L (12-78); ALBUMIN 2.5 G/DL (3.4-5.0); ALBUMIN/GLOBULIN RATIO 0.7 (1.1-1.5); ALKALINE PHOSPHATASE 77 IU/L (46-116); ANION GAP 7 (8-16); ASPARTATE AMINO TRANSFERASE 12 U/L (10-37); BILIRUBIN,TOTAL 1.2 MG/DL (0.1-1.0); BLOOD UREA NITROGEN 33 MG/DL (7-18); BUN/CREATININE RATIO 27.5 (5.4-32.0); CHLORIDE 105 MMOL/L (99-107); GLUCOSE 93 MG/DL (70-104); POTASSIUM 4.6 MMOL/L (3.5-5.1); SODIUM 138 MMOL/L (135-145); TOTAL PROTEIN 6.1 G/DL (6.4-8.2); eGFR 61 ML/MIN
[2020-03-31] MEDS: atorvastatin 10mg tablet PO SCH (07:38)
[2020-03-31] MEDS: dexamethasone 4mg tablet PO SCH (07:38)
[2020-03-31] MEDS: lactobacillus rhamnosus 10,000 MMU CELLS/CAPSULE PO SCH ×2 (07:38→21:19)
[2020-03-31] MEDS: gabapentin 300mg capsule PO SCH ×3 (07:38→21:19)
[2020-03-31] MEDS: enoxaparin 40mg/0.4ml syringe SUBCUT SCH (07:40)
[2020-03-31 07:48] LABS: C-REACTIVE PROTEIN < 0.05 MG/DL (0.0-0.5)
--- NOTE | 2020-03-31 09:29 | NUR ---
PAGER ID: [phone] MESSAGE: DR. HOWELL, [id number]/SULLY, CURRENT SAT ON 3L/NC 90%. THEN STARTED EXERCISING IN ROOM, SAT 86% WITH EXERCISE ON 3L/NC. PLEASE ORDER 0XYGEN WITH PARAMETERS? THERE IS NO ORDER. GUILHERME [id number]. TY
[2020-03-31 11:00] VITALS: BP 110/69
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
[2020-03-31 15:00] VITALS: BP 104/65
[2020-03-31 18:00] VITALS: BP 104/73
--- NOTE | 2020-03-31 18:17 | NUR ---
Patient in room PCU 3009. I have received report from Ambrosio EL and had the opportunity to ask questions and assume patient care.
--- NOTE | 2020-03-31 18:20 | NUR ---
Patient in room U 3009. I have received report from keli hernandes and had the opportunity to ask questions and assume patient care. Addendum: 03/31/20 at 1822 by Nicanor Robert RN ABOVE MESSAGE IS AN ERROR.
--- NOTE | 2020-03-31 18:22 | NUR ---
Problems reprioritized. Patient report given, questions answered & plan of care reviewed with SIENNA CARDENAS.
[2020-03-31] MEDS: nortriptyline 25mg capsule PO SCH (21:18)
[2020-03-31] MEDS: tamsulosin 0.4mg capsule PO SCH (21:19)
[2020-03-31 22:00] VITALS: BP 107/75
[2020-04-01 02:00] VITALS: BP 108/75
[2020-04-01 05:49] LABS: BASOPHILS % (AUTO) 0.2 % (0-1); EOSINOPHILS # (AUTO) 0.1 X10'3 (0-0.9); EOSINOPHILS % (AUTO) 0.9 % (0-6); HEMOGLOBIN 14.1 g/dl (14.0-17.9); LYMPHOCYTES % (AUTO) 12.4 % (21-51); MEAN CORPUSCULAR HGB CONC 33.4 g/dL (33.0-36.5); MEAN CORPUSCULAR VOLUME 89.7 FL (78-98); MEAN PLATELET VOLUME 8.3 FL (7.4-10.4); MONOCYTES # (AUTO) 0.6 X10'3 (0-0.9); MONOCYTES % (AUTO) 7.3 % (2-12); NEUTROPHILS # (AUTO) 6.6 X10'3 (1.8-7.7); NEUTROPHILS % (AUTO) 79.2 % (42-75); PLATELET COUNT 171 X10'3 (140-440); RED BLOOD COUNT 4.69 X10'6 (4.70-6.10); RED CELL DISTRIBUTION WIDTH 15.2 % (11.5-14.5); WHITE BLOOD COUNT 8.4 X10'3 (4.5-11.0)
[2020-04-01 05:57] LABS: D-DIMER 0.37 MG/L FEU (0-0.50)
[2020-04-01 06:00] VITALS: BP 101/62
--- NOTE | 2020-04-01 06:19 | NUR ---
Patient in room PCU 3009. I have received report from SIENNA CARDENAS and had the opportunity to ask questions and assume patient care.
--- NOTE | 2020-04-01 06:29 | NUR ---
Problems reprioritized. Patient report given, questions answered & plan of care reviewed with Ambrosio RN.
[2020-04-01] MEDS: dexamethasone 4mg tablet PO SCH (07:38)
[2020-04-01] MEDS: lactobacillus rhamnosus 10,000 MMU CELLS/CAPSULE PO SCH (07:38)
[2020-04-01] MEDS: gabapentin 300mg capsule PO SCH ×2 (07:39→13:14)
[2020-04-01] MEDS: atorvastatin 10mg tablet PO SCH (07:39)
[2020-04-01] MEDS ORDERED: enoxaparin 40mg/0.4ml syringe SUBCUT SCH (08:00)
[2020-04-01 08:51] LABS: ALANINE AMINOTRANSFERASE 36 U/L (12-78); ALBUMIN 2.4 G/DL (3.4-5.0); ALBUMIN/GLOBULIN RATIO 0.7 (1.1-1.5); ALKALINE PHOSPHATASE 69 IU/L (46-116); ANION GAP 7 (8-16); ASPARTATE AMINO TRANSFERASE 16 U/L (10-37); BILIRUBIN,TOTAL 1.2 MG/DL (0.1-1.0); BLOOD UREA NITROGEN 31 MG/DL (7-18); BUN/CREATININE RATIO 26.1 (5.4-32.0); C-REACTIVE PROTEIN 0.73 MG/DL (0.0-0.5); CALCIUM 8.4 MG/DL (8.5-10.1); CHLORIDE 105 MMOL/L (99-107); CREATININE 1.19 MG/DL (0.60-1.10); GLUCOSE 102 MG/DL (70-104); POTASSIUM 4.5 MMOL/L (3.5-5.1); SODIUM 138 MMOL/L (135-145); TOTAL CARBON DIOXIDE 25.7 MMOL/L (24-32); eGFR 62 ML/MIN
[2020-04-01 11:00] VITALS: BP 113/74
--- NOTE | 2020-04-01 11:09 | NUR ---
02 SAT ON 3L/NC 88%AT REST. DEEP BREATHING THROUGH NOSE, OUT MOUTH, SAT 9- Addendum: 04/01/20 at 1110 by Nicanor Robert RN SAT 90%. DR. HOWELL NOTIFIED.
--- NOTE | 2020-04-01 11:10 | NUR ---
O2 Sat at rest on room air:__83_% If below 89%: Recovery O2 Sat at rest on 3LPM: 90% via NASAL CANNULA(mask/nasal cannula, etc..) No further documentation is necessary. If O2 Sat did not drop below 89% on room air,ambulate patient on room air. O2 Sat while ambulating on room air:___% Recovery O2 Sat while ambulating on ___LPM:___% No further documentation is necessary. If patient does not drop below 89% while ambulating, he/she does not qualify for home O2.
[2020-04-01] MEDS ORDERED: DEC4T PO (11:37)
[2020-04-01 15:00] VITALS: BP 108/68
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
--- NOTE | 2020-04-01 18:20 | NUR ---
Patient in room PCU 3009. I have received report from SIENNA Valente and had the opportunity to ask questions and assume patient care.
--- NOTE | 2020-04-01 18:34 | NUR ---
Problems reprioritized. Patient report given, questions answered & plan of care reviewed with SIENNA POPE.
[2020-04-01 19:00] VITALS: BP 146/80
--- NOTE | 2020-04-01 19:30 | NUR ---
Patient was discharged with belongings in hand, also oxygen tank that was provided from an outside source. Patietn as ALOx4, and in no apparent distress.
== END 2020-04-01 19:30 | disposition home or self-care (01) | DRG 137 ==
LOC: ER 15:10 → ED HOLD 17:55 → PCU 3S 20:25
PROVIDERS: ADMIT Internal Medicine; ATTEND Internal Medicine
PROC: B32T1ZZ Computerized Tomography (CT Scan) of Left Pulmonary Artery using Low Osmolar Contrast (ICD-10-PCS; principal; 2020-03-18)
PROC: B32S1ZZ Computerized Tomography (CT Scan) of Right Pulmonary Artery using Low Osmolar Contrast (ICD-10-PCS; 2020-03-18)
PROC: XW033E5 Introduction of Remdesivir Anti-infective into Peripheral Vein, Percutaneous Approach, New Technology Group 5 (ICD-10-PCS; 2020-03-18)
DX: U07.1 COVID-19 (principal); J96.01 Acute respiratory failure with hypoxia; J12.89 Other viral pneumonia; R62.7 Adult failure to thrive; G47.00 Insomnia, unspecified; E78.5 Hyperlipidemia, unspecified; N40.0 Benign prostatic hyperplasia without lower urinary tract symptoms; G89.29 Other chronic pain; M54.9 Dorsalgia, unspecified
CPT/HCPCS: 36415; 36600; 71275; 80048; 80053; 82803; 83615; 84145; 85007; 85018; 85025; 85379; 86140; 87081; 93005; 94760; 96365; 99291; G0378; J0696; J1650; J8540; Q9967